=== PATIENT | male | born 1990 | race African-American/Black ===

== ENCOUNTER 2024-08-22 08:44 | Emergency (ER) | payer OTHER, SELFPAY ==
--- NOTE | ~2024-08-22 | XR_ITS ---
CLINICAL HISTORY: ?wrist injury 4 view right wrist Comparison: None Findings: No fractures or dislocations. No significant loss of joint space, osteophyte, or erosions. No radiopaque foreign body. IMPRESSION: 1. No acute findings This document has been electronically signed by: Pablo Solano MD on 08/22/2024 09:29:40
[2024-08-22 08:46] VITALS: BP 143/78; PULSE 80; RESP 16; TEMP 36.3; O2SAT 98; BMI 21.0
--- NOTE | 2024-08-22 09:56 | ED_ITS ---
HPI - Extremity Problem General Chief complaint: Extremity Injury, Upper Stated complaint: r hand inj Time Seen by Provider: 08/22/24 09:04 Source: patient and RN notes reviewed Mode of arrival: ambulatory Limitations: no limitations History of Present Illness ED Provider: Alysa Orellana PA-C HPI Narrative: This is a 34-year-old male, with no known medical problems, who presents emergency department with complaints of right wrist swelling. Patient denies any known injury or trauma however may be attributed to lifting. He states that he has had no problems with his wrist in the past. He is right-hand dominant. Patient states that he has been using an Mati wrap to his wrist for comfort as well as to be more mindful of his wrist. Denies taking any medications at home. He has full range of motion of his wrist without difficulty. Denies any other complaints or concerns at this time MD Complaint: joint swelling and joint pain Onset (ago): week(s) Location: right and upper extremity Quality: aching Radiation: none Exacerbating factors: nothing Associated symptoms: denies other symptoms Related Data Allergies Allergy/AdvReac Type Severity Reaction Status Date / Time No Known Allergies Allergy Verified 08/22/24 08:47 Review of Systems Review of Systems: Yes all other systems are reviewed and are negative Constitutional: Constitutional: Reports as per [facility] Social History Social History Advance Directives: No Advance Directives Information Provided: No Do you have a plan to hurt others: No Plan Physical Exam Vital Signs: Vital Signs: Last Vital Signs Temp 97.3 F 08/22/24 08:46 Pulse 80 08/22/24 08:46 Resp 16 08/22/24 08:46 BP 143/78 H 08/22/24 08:46 Pulse Ox 98 08/22/24 08:46 O2 Del Method Room Air 08/22/24 08:46 BMI result Body Mass Index 21.0 Const: General: cooperative, comfortable and no acute distress Orientation/consciousness: patient oriented x3 Limitations: no limitations HEENT: Head: Yes normal to inspection, Yes normocephalic and Yes atraumatic Ears: hearing grossly normal bilaterally General nose exam: Normal external nose present Face and sinus: Yes normal facial exam Mouth: Normal oral and palatal mucosa present, oropharynx normal and moist mucous membranes Throat: Yes posterior oropharynx normal Eyes: General: appearance normal, both eyes and all related structures Eyelids: Yes eyelids normal Conjunctivae: conjunctivae normal Sclerae: sclerae normal Pupils: Equal, round and reactive pupils present EOM: EOMs intact bilaterally Neck: Neck: Yes normal visual inspection, Yes full ROM and Yes no lymphadenopathy Lymphatic: no lymphadenopathy noted Chest: Chest palpation & inspection: normal inspection of the chest Resp: Effort & Inspection: normal respiratory effort and able to speak in complete sentences Auscultation: clear to auscultation bilaterally, no crackles, no rales, no rhonchi and no wheezes Cardio: Rate: regular rate Rhythm: regular rhythm Heart sounds: S1 normal heart sound present and S2 normal heart sound present GI: Inspection: Yes normal to inspection Skin: General skin exam: no rashes or lesions noted Trauma: no lacerations or abrasions Wounds: no wounds Neuro: General: patient oriented x3 and moves all extremities Cranial nerves: Yes Equal, round and reactive pupils present Extrem: Other: Right wrist, dorsal aspect, there is a 1 x 1 cm area of mass that is soft, induration and fluctuance, nontender. No erythema or warmth. Strong radial pulse, full range of motion of the wrist, full range of motion of the digits. No General: Yes normal to inspection Left upper extremity: normal to inspection Right lower extremity: normal to inspection Left lower extremity: normal to inspection Medical Decision Making Medical Decision Making MDM Narrative: This is a 34-year-old male who presents emergency department with complaints of right wrist pain and swelling for the last week. On arrival, vital signs revealing slight hypertension at 143/78. He is well-appearing speaking full sentences, no headache, dizziness, chest pain or shortness for breath. He states that he has had swelling to the dorsum of his right wrist, without any injury or trauma. On physical exam, dorsal aspect, there is a 1 x 1 area of induration and fluctuance, mobile, nontender. He has full range of motion of the wrist. Symptoms likely attributed to a ganglion cyst. Discussed this with patient. X-ray was performed which revealed no acute abnormalities. He will follow-up with web communications specialist. Will give Mati wrap/wrist splint for comfort. Given strict return precautions. He understands and agrees with plan. Patient stable for discharge. Differential Diagnosis Differential Diagnoses: The differential diagnosis associated with the presentation includes Ganglion cyst, wrist sprain, strain, contusion, ligamentous injury Admission/Observation Consideration of admission/observation: Escalation of care including admission/observation considered Radiology Impression Discussion of test interpretation with radiology: I have reviewed the radiologist's reading. Radiologist Impression: Comparison: None Findings: No fractures or dislocations. No significant loss of joint space, osteophyte, or erosions. No radiopaque foreign body. IMPRESSION: 1. No acute findings This document has been electronically signed by: Pablo Solano MD on 08/22/2024 09:29:40 Dictated By: Pablo Solano MD Signed By: <Electronically signed by Pablo Solano MD in OV> Discharge Plan Discharge Clinical Impression: Ganglion cyst of dorsum of right wrist, Right wrist pain Patient Disposition: Home, Self-Care Instructions: Wrist Injury (ED), Ganglion Cysts (ED) Additional Instructions: You were seen in the emergency department due to right wrist swelling/pain. Your x-ray does not show any bony abnormalities. Your exam is concerning for a possible ganglion cyst. Often times this will go away on its own, but other times this may need to be drained or surgically excised. For further management and treatment of your symptoms, I am recommending you follow-up with the web communications specialist. Call on Saturday to make an appointment. Rest, ice, ibuprofen and Tylenol as needed for pain, and use Mati wrap or wrist splint as needed for comfort. If any new or worsening symptoms occur including but not limited to worsening pain, inability to move your wrist, increased redness or swelling to your wrist, please seek emergent care. [place] [facility] [place] [place] [facility] [place] Group[place] Stand Alone Forms: Work/School Release Print Language: Hebrew
[2024-08-22 10:49] VITALS: BP 117/78
[2024-08-22 10:50] VITALS: BP 117/78; PULSE 0; RESP 16; TEMP -17.7; TEMP 0; O2SAT 99
== END 2024-08-22 10:51 | disposition home or self-care (01) ==
PROVIDERS: Emergency Provider Emergency Medicine
DX: M67.431 Ganglion, right wrist (principal); M25.531 Pain in right wrist
CPT/HCPCS: 73100; 99282; 99283

== ENCOUNTER → 2024-08-22 09:05 | Outpatient (BNV) | payer SELFPAY | PROVIDERS: Emergency Provider Emergency Medicine; Visit Provider Radiology Diagnostic Radiology | DX: M25.531 Pain in right wrist (principal) | CPT/HCPCS: 73100 ==